=== PATIENT | female | born 1965 | race Caucasian/White ===

== ENCOUNTER → 2016-10-09 08:33 | Outpatient (CLI) | payer MEDICAID ==
[2013-01-02 18:23] VITALS: BMI 60.7
[2016-10-09 09:18] LABS: BASOPHILS 0.2 % (0.0-2.0); EOSINOPHILS 1.7 % (0-7); HEMATOCRIT 41.3 % (36.0-48.0); HEMOGLOBIN 13.4 g/dL (12-16); IMMATURE GRANULOCYTES 0.4 % (0-5); LYMPHOCYTES 28.7 % (15-50); MCH 32.3 pg (26.0-34.0); MCHC 32.4 g/dL (31.0-37.0); MCV 99.5 fL (80.0-100.0); MEAN PLATELET VOLUME 10.5 fL (7.4-10.4); MONOCYTES 5.7 % (2-11); NEUTROPHILS 63.3 % (40-80); PLATELET COUNT 156 10x3/uL (130-400); RBC 4.15 10x6/uL (4.00-5.40); RDW 13.9 % (11.5-14.5); WBC 5.4 10x3/uL (4.8-10.8)
[2016-10-09 09:53] LABS: ALBUMIN 3.9 g/dL (3.4-5.0); ALKALINE PHOSPHATASE 58 U/L (46-116); ALT (SGPT) 45 U/L (10-68); BILIRUBIN - TOTAL 0.35 mg/dL (0.2-1.3); CALC OSMOLALITY 280 mosm/kg (275-300); CALCIUM 9.3 mg/dL (8.5-10.1); CARBON DIOXIDE 33.8 mmol/L (21.0-32.0); CHLORIDE - SERUM 102 mmol/L (98-107); CHOL - HDL RATIO 4.2 ratio (2.3-4.1); CHOLESTEROL, TOTAL 196 mg/dL (0-200); CREATININE - SERUM 0.6 mg/dL (0.6-1.3); GLUCOSE 88 mg/dL (74-106); HDL CHOLESTEROL 47 mg/dL (32-96); LDL CHOLESTEROL 119 mg/dL (0-100); LDL-HDL RATIO 2.5 ratio (1.5-3.5); POTASSIUM - SERUM 4.3 mmol/L (3.5-5.1); PROTEIN - SERUM 8.7 g/dL (6.4-8.2); SODIUM 141 mmol/L (136-145); TRIGLYCERIDE 150 mg/dL (30-200); UREA NITROGEN 15 mg/dL (7-18); eGFR NON AFRICAN AMERICAN > 90 mL/min (90-120)
== END | disposition home or self-care (01) ==
LOC: D.CN 08:33
PROVIDERS: Family Medicine
DX: I89.0 Lymphedema, not elsewhere classified (principal); E66.01 Morbid (severe) obesity due to excess calories; R60.9 Edema, unspecified

== ENCOUNTER 2017-08-11 10:08 | Emergency (ER) | payer MEDICAID ==
[2013-01-02 18:23] VITALS: BMI 60.7
[2017-08-11 12:23] LABS: BASOPHILS 0.2 % (0-2); EOSINOPHILS 0.2 % (0-7); HEMATOCRIT 36.3 % (36.0-48.0); IMMATURE GRANULOCYTES 0.2 % (0-5); MCH 31.5 pg (26.0-34.0); MCHC 33.1 g/dL (31.0-37.0); MCV 95.3 fL (80.0-100.0); MEAN PLATELET VOLUME 10.7 fL (7.4-10.4); NEUTROPHILS 82.4 % (40-80); PLATELET COUNT 139 10x3/uL (130-400); RBC 3.81 10x6/uL (4.00-5.40); WBC 6.1 10x3/uL (4.8-10.8)
[2017-08-11 12:42] LABS: ALBUMIN 3.2 g/dL (3.4-5.0); ALKALINE PHOSPHATASE 64 U/L (46-116); ALT (SGPT) 47 U/L (10-68); BILIRUBIN - TOTAL 0.39 mg/dL (0.2-1.3); CALC OSMOLALITY 266 mosm/kg (275-300); CALCIUM 8.7 mg/dL (8.5-10.1); CARBON DIOXIDE 26.6 mmol/L (21.0-32.0); CHLORIDE - SERUM 98 mmol/L (98-107); CREATININE - SERUM 0.6 mg/dL (0.6-1.3); GLUCOSE 104 mg/dL (74-106); PROTEIN - SERUM 7.4 g/dL (6.4-8.2); SODIUM 134 mmol/L (136-145); UREA NITROGEN 10 mg/dL (7-18); eGFR NON AFRICAN AMERICAN > 90 mL/min (90-120)
[2017-08-11 12:47] LABS: TROPONIN-I < 0.017 ng/mL (0.000-0.060)
== END 2017-08-11 14:10 | disposition home or self-care (01) ==
LOC: D.ER 10:08
PROVIDERS: Family Medicine
DX: B34.9 Viral infection, unspecified (principal); J06.9 Acute upper respiratory infection, unspecified

== ENCOUNTER → 2017-11-18 10:36 | Outpatient (CLI) | payer MEDICAID ==
[2013-01-02 18:23] VITALS: BMI 60.7
[2017-11-18 11:24] LABS: BASOPHILS 0.3 % (0-2); EOSINOPHILS 1.1 % (0-7); HEMOGLOBIN 13.3 g/dL (12-16); IMMATURE GRANULOCYTES 0.3 % (0-5); LYMPHOCYTES 20.5 % (15-50); MCH 31.1 pg (26.0-34.0); MCHC 33.3 g/dL (31.0-37.0); MCV 93.5 fL (80.0-100.0); MEAN PLATELET VOLUME 10.6 fL (7.4-10.4); MONOCYTES 5.9 % (2-11); NEUTROPHILS 71.9 % (40-80); RBC 4.28 10x6/uL (4.00-5.40); RDW 13.8 % (11.5-14.5)
[2017-11-18 11:27] LABS: PLATELET COUNT 225 10x3/uL (130-400)
[2017-11-18 11:50] LABS: ALBUMIN 3.9 g/dL (3.4-5.0); ALKALINE PHOSPHATASE 73 U/L (46-116); ALT (SGPT) 51 U/L (10-68); BILIRUBIN - TOTAL 0.55 mg/dL (0.2-1.3); CALC OSMOLALITY 280 mosm/kg (275-300); CALCIUM 9.5 mg/dL (8.5-10.1); CARBON DIOXIDE 28.2 mmol/L (21.0-32.0); CHLORIDE - SERUM 102 mmol/L (98-107); CHOL - HDL RATIO 3.9 ratio (2.3-4.1); CHOLESTEROL, TOTAL 215 mg/dL (0-200); CREATININE - SERUM 0.6 mg/dL (0.6-1.3); GLUCOSE 98 mg/dL (74-106); HDL CHOLESTEROL 55 mg/dL (32-96); LDL CHOLESTEROL 141 mg/dL (0-100); LDL-HDL RATIO 2.6 ratio (1.5-3.5); POTASSIUM - SERUM 4.7 mmol/L (3.5-5.1); PROTEIN - SERUM 8.4 g/dL (6.4-8.2); SODIUM 141 mmol/L (136-145); THYROID STIMULATING HORMONE 3.25 uIU/mL (0.36-3.74); TRIGLYCERIDE 97 mg/dL (30-200); UREA NITROGEN 13 mg/dL (7-18); eGFR NON AFRICAN AMERICAN > 90 mL/min (90-120)
== END | disposition home or self-care (01) ==
LOC: D.LAB 10:36
PROVIDERS: Family Medicine
DX: Z00.00 Encounter for general adult medical examination without abnormal findings (principal); I89.0 Lymphedema, not elsewhere classified

== ENCOUNTER → 2018-01-06 09:48 | Outpatient (CLI) | payer MEDICAID ==
[2013-01-02 18:23] VITALS: BMI 60.7
[2018-01-06 10:47] LABS: APPEARANCE CLEAR (CLEAR); BILIRUBIN NEGATIVE (NEGATIVE); COLOR YELLOW (YELLOW); GLUCOSE NEGATIVE (NEGATIVE); KETONE NEGATIVE (NEGATIVE); NITRITE NEGATIVE (NEGATIVE); PROTEIN NEGATIVE (NEGATIVE); UROBILINOGEN NORMAL (NORMAL)
[2018-01-06 10:57] LABS: UDS - AMPHET NEGATIVE QUAL (NEGATIVE); UDS - BARB NEGATIVE QUAL (NEGATIVE); UDS - BENZO NEGATIVE QUAL (NEGATIVE); UDS - COCAINE NEGATIVE QUAL (NEGATIVE); UDS - OPIATE NEGATIVE QUAL (NEGATIVE); UDS - PCP NEGATIVE QUAL (NEGATIVE); UDS - THC NEGATIVE QUAL (NEGATIVE)
== END | disposition home or self-care (01) ==
LOC: D.LAB 09:48
PROVIDERS: Family Medicine
DX: E66.01 Morbid (severe) obesity due to excess calories (principal)

== ENCOUNTER → 2018-01-14 19:44 | Outpatient (CLI) | payer MEDICAID ==
[2013-01-02 18:23] VITALS: BMI 60.7
== END | disposition home or self-care (01) ==
LOC: D.SLEEP 08:00
DX: G47.33 Obstructive sleep apnea (adult) (pediatric) (principal)

== ENCOUNTER → 2018-07-29 11:00 | Outpatient (CLI) | payer MEDICAID ==
[2013-01-02 18:23] VITALS: BMI 60.7
== END | disposition home or self-care (01) ==
LOC: D.US 11:00
DX: R60.0 Localized edema (principal)

== ENCOUNTER → 2019-04-28 10:39 | Outpatient (CLI) | payer MEDICAID ==
[2013-01-02 18:23] VITALS: BMI 60.7
[2019-04-28 11:55] LABS: ALBUMIN 4.2 g/dL (3.4-5.0); ALKALINE PHOSPHATASE 68 U/L (46-116); ALT (SGPT) 33 U/L (10-68); BILIRUBIN - TOTAL 0.63 mg/dL (0.2-1.3); CALC OSMOLALITY 286 mosm/kg (275-300); CALCIUM 9.2 mg/dL (8.5-10.1); CARBON DIOXIDE 29.9 mmol/L (21.0-32.0); CHLORIDE - SERUM 103 mmol/L (98-107); CHOL - HDL RATIO 3.8 ratio (2.3-4.1); CHOLESTEROL, TOTAL 181 mg/dL (0-200); CREATININE - SERUM 0.6 mg/dL (0.6-1.3); GLUCOSE 92 mg/dL (74-106); HDL CHOLESTEROL 48 mg/dL (32-96); LDL CHOLESTEROL 114 mg/dL (0-100); LDL-HDL RATIO 2.4 ratio (1.5-3.5); POTASSIUM - SERUM 3.8 mmol/L (3.5-5.1); PROTEIN - SERUM 8.7 g/dL (6.4-8.2); SODIUM 144 mmol/L (136-145); THYROID STIMULATING HORMONE 2.25 uIU/mL (0.36-3.74); TRIGLYCERIDE 97 mg/dL (30-200); UREA NITROGEN 13 mg/dL (7-18); eGFR NON AFRICAN AMERICAN > 90 mL/min (90-120)
== END | disposition home or self-care (01) ==
LOC: D.LAB 10:39
PROVIDERS: ATTEND Family Medicine
DX: M54.5 Low back pain (principal); E66.9 Obesity, unspecified; R60.9 Edema, unspecified

== ENCOUNTER 2019-12-30 16:12 | Emergency (ER) | payer MEDICAID ==
[~2019-12-30] VITALS: Ht 149.9 cm; Wt 163.6 kg
[2019-12-30 16:30] VITALS: Ht 149.9 cm; Wt 163.6 kg
[2019-12-30] MEDS ORDERED: ULTRAM50 MG PO (19:00)
[2019-12-30 19:58] VITALS: BP 148/478
== END 2019-12-30 19:54 | disposition home or self-care (01) ==
LOC: D.ER 16:12
DX: M54.5 Low back pain (principal); G89.29 Other chronic pain; S90.32XA Contusion of left foot, initial encounter; S90.31XA Contusion of right foot, initial encounter; J45.909 Unspecified asthma, uncomplicated; M43.16 Spondylolisthesis, lumbar region